=== PATIENT | female | born 1945 | race Caucasian/White ===

== ENCOUNTER → 2024-02-21 08:50 | Outpatient (REF) | payer OTHER, SELFPAY ==
[2024-02-21 12:27] LABS: % Basophils 1.6 % (0-2); % Eosinophils 2.7 % (0-6); % Immature Granulocytes 0.4 % (0-0.5); % Lymphocytes 26.7 % (20.5-51.1); % Monocytes 9.4 % (1.7-9.3); % Neutrophils 59.2 % (42.2-75.2); Absolute Basophils 0.1 10^3/uL (0-0.2); Absolute Eosinophils 0.2 10^3/uL (0-0.7); Absolute Lymphocytes 1.8 10^3/uL (1.2-3.4); Absolute Monocytes 0.6 10^3/uL (0.1-0.6); Hematocrit 35.1 % (37.0-47.0); Hemoglobin 11.6 g/dL (12.0-16.0); Mean Corpuscular Hgb 31.2 pg (27.0-31.0); Mean Corpuscular Volume 94.4 fL (81.0-99.0); Nucleated Red Blood Cells % 0 %; Platelet Count 322 10^3/uL (130-400); Red Blood Cell Count 3.72 10^6/uL (4.20-5.40); Red Cell Dist. Width 13.4 % (11.5-14.5); White Blood Cell Count 6.7 10^3/uL (4.8-10.8)
[2024-02-21 12:35] LABS: ALT (SGPT) 25 U/L (0-35); AST (SGOT) 32 U/L (14-36); Albumin 4.5 g/dl (3.5-5.0); Alkaline Phosphatase 132 U/L (38-126); Blood Urea Nitrogen 34 mg/dl (7-17); Calcium 10.1 mg/dl (8.4-10.2); Carbon Dioxide 24 mmol/L (22-30); Chloride 105 mmol/L (98-107); Glucose 113 mg/dl (70-99); HDL Cholesterol 70 mg/dl; LDL Cholesterol, Calculated 89 mg/dl; Potassium 4.5 mmol/L (3.5-5.1); Sodium 136 mmol/L (135-145); Total Bilirubin 0.6 mg/dl (0.2-1.3); Total Cholesterol 194 mg/dl (50-199); Total Protein 7.4 g/dl (6.3-8.2); Triglyceride 178 mg/dl (10-149); Very Low Density Lipoprotein 35 mg/dl (0-30); eGFR > 60.00
[2024-02-21 12:47] LABS: Glycohemoglobin (HgbA1c) 6.1 % (4.0-5.6)
== END ==
LOC: HWLAB 08:50
PROVIDERS: ATTENDING PHYSICIAN Internal Medicine
DX: R73.01 Impaired fasting glucose (principal); I10 Essential (primary) hypertension; E78.5 Hyperlipidemia, unspecified; M19.90 Unspecified osteoarthritis, unspecified site
CPT/HCPCS: 36415; 80053; 80061; 83036; 85025

== ENCOUNTER 2024-04-11 10:22 | Emergency (ER) | payer OTHER, SELFPAY ==
[2024-04-11 10:28] VITALS: BP 172/65
--- NOTE | 2024-04-11 11:19 | ED.GENMED ---
History of Present Illness
General
Chief Complaint: Musculo-Skeletal Complaint
Time Seen by Provider: 04/11/24 10:33
Travel History
Have you had any contact with someone who has COVID-19?: No
Do you have any symptoms of coronavirus? Fever > 100 degrees, chills, cough, shortness of breath, sore throat, loss of taste or smell, muscle aches, or headache?: No
History of Present Illness
History of Present Illness:
78-year-old female with history of hypertension presents to the emergency department for evaluation of right groin and right buttock pain ongoing for the past 6 weeks. Pain initially began when she was attempting to get in and out of her car,
denies any falls or direct blunt injuries. Was seen in outside urgent care last week and had an x-ray of the hip and pelvis that was unremarkable. She is having difficulty walking and states pain is worse when attempting to flex the hip. Minimal
pain while lying in the bed at rest. Also concern for gradually worsening swelling of the right lower leg and foot
Past History
Past History
ED Past Medical History: Other
Social History
Tobacco: Former smoker
Alcohol: Occasional
Family History
Family History: Other
Review of Systems
Review of Systems
Allergies reviewed?: Yes
All Other Systems: ROS reviewed and negative except as documented in HPI and ROS
Phy Exam
Physical Exam
Physical Exam:
GEN: Well appearing, NAD, WDWN
HEENT: Oral mucosa moist, no scleral icterus
Cardiac: Regular rate
Lung: No respiratory distress, no tachypnea
MSK: No gross deformity or injuries. Tenderness elicited to the right groin, no gross deformity, range of motion is limited secondary to pain, passive range of motion is pain-free. There is mild edema of the right foot and ankle however patient
does have 2+ pitting edema to bilateral extremities that appear symmetric
Skin: Good color, no pallor or jaundice, no rashes
Neuro: AO x3, moves all extremities freely
Psych: Calm, cooperative
Course
Orders/Labs/Results
Orders:
Orders
04/11/24 10:43
CT Pelvis W/o Iv Contrast Urgent
Comment:
Reason For Exam: R hip pain negative outpatient XR
Venous Doppler Lwr Ext Rt [US Periph Venous LOWER Ext RT] Urgent
Comment:
Reason For Exam: RLE edema
04/11/24 13:01
Case Management Consult ONCE
Case Management Consult: VN/Home Care
Comment: Home PT
04/11/24 13:11
Pt Eval And Treat Urgent
Treatment: eval for home PT
Activity Level: As Tolerated
Vital Signs
Initial and Last Documented VS:
Initial Vital Signs
Temp Pulse Resp BP Pulse Ox
98.2 F 75 16 172/65 98
04/11/24 10:28 04/11/24 10:28 04/11/24 10:28 04/11/24 10:28 04/11/24 10:28
Last Documented Vital Signs
Temp Pulse Resp BP Pulse Ox
98.2 F 72 16 158/64 97
04/11/24 10:28 04/11/24 11:39 04/11/24 11:39 04/11/24 11:39 04/11/24 11:39
MDM/Problems Addressed
MDM/Problems Addressed:
Workup reveals a suspected tear of the distal right iliopsoas muscle. Patient has an intolerance to NSAIDs due to prior history of GI bleeding, at this point it is not likely that medications are significant benefit
Refer to physical therapy on an outpatient basis. PT and case management saw the patient in the emergency department to help facilitate potential home PT. She has scheduled outpatient follow-up with orthopedics on Wednesday through [facility]
*Critical Care Note
Total Time (30-74mins, 75-104mins- exclusive of procedures): Not Applicable
ED Attending Note
-
Portions of this chart may have been created with voice recognition software.� Occasional wrong word or��sound alike� substitutions may have occurred due to the inherent limitations of voice recognition software.
Discharge Plan
Departure
Patient Disposition: Home (Routine Discharge)
Date of Disposition: 04/11/24
Time of Disposition: 14:06
Patient with high blood pressure during this ER visit?: No
Discharge Problem:
Strain of right iliopsoas muscle
Instructions: Hip pain in adults
Prescriptions:
New
tramadol 50 mg tablet
25 - 50 mg PO BID PRN (Reason: Pain) Qty: 10 0RF
No Action
multivitamin [Daily Multiple] 1 EACH tablet
1 ea PO QPM
famotidine 20 MG tablet
20 mg PO DAILY
Patient Comments:
street brand
lisinopril 10 MG tablet
20 mg PO DAILY
bismuth subsalicylate [Pepto-Bismol] 262 MG tablet,chewable
2 tab PO PRN PRN (Reason: diarrhea)
aspirin 81 MG tablet,chewable
81 mg PO DAILY
hydrochlorothiazide 25 MG tablet
25 mg PO DAILY
psyllium 1 EACH wafer
2 cap PO QPM
docosahexaenoic acid-epa 1 CAP capsule
1,000 mg PO BID
Movefree
1 tab PO BID
fexofenadine [Phuong] 180 MG tablet
180 mg PO HS
Referrals:
Jesica Ortiz MD [Family Provider] -
Activity Restrictions/Additional Instructions:
Your CAT scan shows no fractures however there is a high likelihood for a strain or partial tear of your iliopsoas muscle, which is a deep abdominal and pelvic muscle that flexes the hip. We are referring you to physical therapy and you should
follow-up with your underwriting specialist for this next week as planned. Please take the tramadol only as needed for severe breakthrough pain
Interventions
Interventions:
*Risk Screen - Suicide Last Done: 04/11/24 11:30
*General Assessment Last Done: 04/11/24 11:30
*Neglect/Abuse Screening Last Done: 04/11/24 11:30
*Nursing Disposition Last Done: 04/11/24 14:35
ED-Musculoskeletal Assessment Last Done: 04/11/24 11:03
Discharge Date and Time
Discharge Date/Time: 04/11/24 14:35
Print Language: YORUBA
[2024-04-11 11:39] VITALS: BP 158/64
--- NOTE | 2024-04-11 13:50 | CM ---
Addendum entered by [facility] 04/11/24 14:50:
VM left for pt on her cell with update
[facility]/11/[facility] 14:29:
Script and referral faxed to [facility] ([phone])
Original Note:
ED CM consult
Bedside meeting with pt and spouse
They reside in a 2S with 2STE, first floor setup
Pt is normally independent without any ADs
She has been using a SPC since injury
PCP- Sanjana Ortiz, last visit Nov 2023
Pt hopeful that [facility] can be arranged on dc
Awaiting outcome of PT eval
== END 2024-04-11 14:35 | disposition home or self-care (01) ==
LOC: EMR 10:22
PROVIDERS: EMERGENCY PHYSICIAN Emergency Medicine; FAMILY PHYSICIAN Internal Medicine
DX: S76.011A Strain of muscle, fascia and tendon of right hip, initial encounter (principal); X58.XXXA Exposure to other specified factors, initial encounter; I10 Essential (primary) hypertension; Z87.891 Personal history of nicotine dependence
CPT/HCPCS: 99284; 72192; 93971